=== PATIENT | female | born 1945 | race Caucasian/White ===

== ENCOUNTER → 2019-09-05 | Outpatient (CLI) | payer MEDICARE, MEDICAID ==
[~2019-09-05] MED LIST: ALEN70TA74 PO; B-122500 PO; CALC600C3 PO; CELE1CAP9 PO; DIAZ2TAB PO; GABA800T4 PO; KETO0.3S OD; OMEP-218 PO; OXYC10TA3 PO; PRED1SUS2 OD; PROAAER10 INH; ROSU20TA5 PO; SERT25TA85 PO; TAB-TAB3 PO; TOBR0.3S OD; VITA2000 PO
== END ==
LOC: M LABSMTC 09:35
PROVIDERS: ATTEND Anesthesiology
DX: Z01.818 Encounter for other preprocedural examination (principal); Z11.59 Encounter for screening for other viral diseases

== ENCOUNTER 2019-09-08 06:07 | Day surgery (SDC) | payer MEDICARE, MEDICAID ==
[~2019-09-08] VITALS: Ht 160 cm; Wt 75.7 kg
[~2019-09-08 06:07] MED LIST changes: +ACETAMINOPHEN 325 MG TAB PO PRN
[2019-09-08] MEDS ORDERED: BALANCED SALT IRRIGATION SOLUTION 500ML BAG (FOR OR EYE MACHINE) As Ordered ONE (06:36)
[2019-09-08] MEDS ORDERED: HEALON DUET PRO(HEALON 10MG/ML 0.55ML & HEALON ENDOCOAT 30MG/ML 0.85ML) As Ordered ONE (06:36)
[2019-09-08] MEDS ORDERED: CEFUROXIME 1MG/0.1ML INTRACAMERAL INJ As Ordered ONE (06:36)
[2019-09-08] MEDS ORDERED: LIDOCAINE 1% SDV 5ML VIAL As Ordered ONE (06:36)
[2019-09-08] MEDS ORDERED: POVIDONE-IODINE 5% OPHTH PREP SOL 30ML As Ordered ONE (06:36)
[2019-09-08] MEDS ORDERED: TRYPAN BLUE 0.06 % 2.25 ML OPHTH SYR (VISIONBLUE) As Ordered ONE (06:49)
[2019-09-08] MEDS ORDERED: MIDAZOLAM INJ 2MG/2ML VIAL (J2250 PER 1MG) As Ordered ONE (06:58)
[2019-09-08] MEDS ORDERED: fentaNYL 100 MCG/2 ML INJECTION (J3010) As Ordered ONE (06:58)
[2019-09-08] MEDS ORDERED: TROPICAMIDE 1% OPHTH SOLN 2ML OD ONE (07:00)
[2019-09-08] MEDS ORDERED: PHENYLEPHRINE 2.5% OPHTH SOL 2ML OD ONE (07:00)
[2019-09-08] MEDS ORDERED: LIDOCAINE 3.5 % 1ML OPHTH TOPICAL GEL OU ONE (07:00)
[2019-09-08] MEDS ORDERED: PHENYLEPHRINE HCL 10 % OPHTH. SOL 5ML OD PRN (07:00)
[2019-09-08] MEDS ORDERED: CYCLOPENTOLATE 2% OPHTH SOLN 2ML BTL OD ONE (07:00)
[2019-09-08] MEDS ORDERED: OFLOXACIN 0.3 % (OCUFLOX) OPTH SOL 5ML OD ONE (07:00)
[2019-09-08] MEDS ORDERED: PROPARACAINE 0.5% OPHTH SOL 15ML OD PRN (07:01)
[2019-09-08 08:24] VITALS: BP 136/60
[2019-09-08] MEDS ORDERED: AcetaZOLAMIDE 500 MG ER CAP PO ONE (09:15)
[2019-09-08] MEDS ORDERED: TRIMETHOBENZAMIDE 300 MG CAP PO PRN (09:15)
[2019-09-08] MEDS ORDERED: KETOROLAC 0.5% OPHTH SOLN OD ONE (09:15)
--- NOTE | 2019-09-10 09:38 | RO ---
DATE OF PROCEDURE: 09/08/2019 PREOPERATIVE DIAGNOSIS: Mature cataract right eye. POSTOPERATIVE DIAGNOSIS: Mature cataract right eye. PROCEDURE PERFORMED: Phacoemulsification with posterior chamber intraocular lens implantation and capsule staining. Lens used was an AU00T0, 24.5 diopters. SURGEON: Pam Song MD TELEMARKETER: ANESTHESIA: Topical sedation. DESCRIPTION OF PROCEDURE: The patient was prepped and draped in usual fashion. A lid speculum was placed between the lids. The eye was fixated. A stab incision was made into the anterior chamber. 1% nonpreserved lidocaine was instilled, and viscoelastic was instilled. A 2.4 mm keratome was used to make a clear corneal temporal limbal incision. The VisionBlue was then instilled underneath the [place] on top of the lens capsule. Fresh Healon was placed and capsule was well stained. Capsulorrhexis was begun with a cystotome and carried out in circular fashion with capsulorrhexis forceps. Lens was hydrodissected and the phacoemulsification unit used to groove the nucleus in two meridians. The nucleus was cracked into four quadrants. Each quadrant was removed with the phacoemulsification unit. Any remaining cortex was removed with the irrigation and aspiration (I and A) unit. The capsular bag was refilled with viscoelastic. The Optiwave refractory analysis (ORA) was used and the measurements made and a 24.5 diopter AU00T0 was chosen. The lens was injected into the capsular bag with no difficulty. Any remaining viscoelastic was removed with the I and A unit. The wound was hydrated and balances salt solution (BSS) and cefuroxime were instilled. Patient tolerated procedure well and went to recovery room in stable condition.
== END 2019-09-08 09:20 | disposition home or self-care (01) ==
LOC: M SDC 06:07
PROVIDERS: ATTEND Ophthalmology
DX: H25.89 Other age-related cataract (principal); K21.9 Gastro-esophageal reflux disease without esophagitis; Z86.718 Personal history of other venous thrombosis and embolism; F32.9 Major depressive disorder, single episode, unspecified; F41.9 Anxiety disorder, unspecified; F17.218 Nicotine dependence, cigarettes, with other nicotine-induced disorders; Z79.899 Other long term (current) drug therapy
CPT/HCPCS: 66984; 92015; J2250; J3010; V2632